=== PATIENT | male | born 1950 | race Caucasian/White ===

== ENCOUNTER 2017-11-20 22:01 | Emergency (ER) | payer MEDICARE, OTHER ==
[2017-11-20 22:32] LABS: % BASOPHILS 0.3 % (0.0-2.0); % EOSINOPHILS 2.5 % (0.0-5.0); % LYMPHOCYTES 20.1 % (20.0-50.0); % NEUTROPHILS 69.1 % (40.0-80.0); EOSINOPHILE ABSOLUTE 0.2 Th/cmm (0.1-0.4); HEMATOCRIT 41.8 % (41.0-60); HEMOGLOBIN 14.1 gm/dL (12-16); LYMPHOCYTE ABSOLUTE 1.8 Th/cmm (1.5-3.0); MEAN CELL VOLUME 87.2 fl (80-99); MEAN CORPUSCULAR HEMOGLOBIN 29.5 pg (27.0-31.0); MEAN CORPUSCULAR HGB CONC 33.9 pg (28.0-36.0); MEAN PLATELET VOLUME 7.8 fl; MONOCYTE ABSOLUTE 0.7 Th/cmm (0.3-1.0); NEUTROPHILE ABSOLUTE 6.4 Th/cmm (1.8-8.0); PLATELET COUNT 151 Th/cmm (150-400); RED BLOOD COUNT 4.79 Mil/cmm (3.80-5.80); RED CELL DISTRIBUTION WIDTH 12.9 % (11.5-20.0); WHITE BLOOD COUNT 9.1 Th/cmm (4.8-10.8)
[2017-11-20 22:49] LABS: ANION GAP 9.7 (7.0-16.0); BUN - UREA NITROGEN 25 mg/dL (7-25); CARBON DIOXIDE 32.5 mEq/L (21.0-31.0); CHLORIDE 100 mEq/L (98-107); CREATININE - SERUM 0.6 mg/dL (0.7-1.3); GFR AFRICAN-AMERICAN > 60.0 ml/min (>90); GFR NON AFRICAN-AMERICAN > 60.0 ml/min; GLUCOSE 92 mg/dL (70-105); POTASSIUM SERUM 4.2 mEq/L (3.5-5.1); SODIUM SERUM 138 mEq/L (136-145)
--- NOTE | 2017-11-20 23:07 | ED Physician Chart ---
ED Chief Complaint/HPI - Patient Information Date Seen:: 11/20/17 Time Seen:: 22:00 Chief Complaint:: cough and congestion History of Present Illness:: Cough and congestion for 2 hours Allergies:: Allergies Allergy/AdvReac Type Severity Reaction Status Date / Time No Known Allergies Allergy Verified 11/20/17 22:02 Vitals:: Vital Signs - 8 hr 11/20/17 22:03 Temp 97.7 F HR 100 RR 20 BP 101/63 O2 Sat % 92 Historian:: Patient, EMS Review:: Nurse's Note Reviewed, Transfer documents Reviewed ED Review of Systems - Review of Systems General/Constitutional: No fever, No chills, No weight loss, No weakness, No diaphoresis, No edema, No loss of appetite Skin: No skin lesions, No rash, No bruising Head: No headache, No light-headedness Eyes: No loss of vision, No pain, No diplopia ENT: No earache, No nasal drainage, No sore throat, No tinnitus Neck: No neck pain, No swelling, No thyromegaly, No stiffness, No mass noted Cardio Vascular: No chest pain, No palpitations, No PND, No orthopnea, No edema Pulmonary: Cough, No wheezing GI: No nausea, No vomiting, No diarrhea, No pain, No melena, No hematochezia, No constipation, No hematemesis G/U: No dysuria, No frequency, No hematuria Musculoskeletal: No bone or joint pain, No back pain, No muscle pain Endocrine: No polyuria, No polydipsia Psychiatric: No prior psych history, No depression, No anxiety, No suicidal ideation Hematopoietic: No bruising, No lymphadenopathy Allergic/Immuno: No urticaria, No angioedema Neurological: No syncope, No focal symptoms, No weakness, No paresthesia, No headache, No seizure, No dizziness, No confusion, No vertigo ED Past Medical History - Past Medical History Past Medical History: Asthma/COPD, CVA/TIA, Other (status post pleural effusion ; aphasia; anemia) Family History: Other ( unavailable) Social History: Care Facility Surgical History: other (laparotomy) Psychiatricy History: None Family Medical History - Family Member Mother History Unknown: Yes Living Status: Unknown Hx Family Cancer: No Hx Family Coronary Artery Disease: No Hx Family Congestive Heart Failure: No Hx Family Hypertension: No Hx Family Stroke: No Hx Family Diabetes: No Hx Family Seizures: No Hx Family Dementia: No Hx Family AIDS: No Hx Family HIV: No Hx Family COPD: No Hx Family Hepatitis: No Hx Family Psychiatric Problems: No Hx Family Tuberculosis: No ED Physical Exam - Physical Examination General/Constitutional: No distress Other Gen/Cons comments:: Patient aphasic Head: Atraumatic Eyes: Lids, conjuctiva normal Skin: Nl inspection, No rash ENMT: External ears, nose nl Neck: No nuchal rigidity Respiratory: Nl effort/Exclusion, Clear to Auscultation, No Wheeze/Rhonchi/Rales Cardio Vascular: RRR GI: No tenderness/rebounding/guarding : No CVA tenderness Extremities: Normal digits & nails Neuro/Psych: No focal deficits ED Labs/Radiology/EKG Results - Lab Results Results: Laboratory Tests 11/20/17 11/20/17 22:24 22:24 WBC 9.1 RBC 4.79 Hgb 14.1 Hct 41.8 MCV 87.2 MCH 29.5 MCHC Differential 33.9 RDW 12.9 Plt Count 151 MPV 7.8 Neutrophils % 69.1 Lymphocytes % 20.1 Monocytes % 8.0 Eosinophils % 2.5 Basophils % 0.3 Sodium 138 Potassium 4.2 Chloride 100 Carbon Dioxide 32.5 H Anion Gap 9.7 BUN 25 Creatinine 0.6 L Est GFR ( Amer) > 60.0 Est GFR (Non-Af Amer) > 60.0 BUN/Creatinine Ratio 41.7 Glucose 92 Calcium 9.0 - Radiology Results Results: Chest x-ray showed elevated right hemidiaphragm, and hernia and calcification of the aortic arch; no infiltrate ED Septic Shock - . Is Septic Shock (SBP<90, OR Lactate>4 mmol\L) present?: No - <6hrs of presentation: Vital Signs: Vital Signs - 8 hr 11/20/17 22:03 Temp 97.7 F HR 100 RR 20 BP 101/63 O2 Sat % 92 ED Reassessment (Disposition) - Reassessment Reassessment:: Dr. Granados at about 0050 and patient to return to his facility Reassessment Condition:: Unchanged - Diagnosis Diagnosis:: Acute viral syndrome - Aftercare/Follow up Instructions Aftercare/Follow-Up Instructions:: Refer to Discharge Instructions - Patient Disposition Discharge/Transfer:: [facility] - [facility] Condition at Disposition:: Stable, Unchanged
--- NOTE | 2017-11-21 08:30 | Diagnostic Imaging Report ---
CHEST X-RAY: AP view INDICATION: Cough COMPARISON: None FINDINGS: There is volume loss of the right lower lobe with right pleural effusion. Borderline prominent heart is noted atherosclerosis. Exam is limited due to patient rotation. Degenerative changes of the spine and shoulders are noted. IMPRESSION: Volume loss of the right lower lobe with right effusion. This may be due to postobstructive pneumonia. Clinical correlation and follow-up is recommended. Short-term follow-up CT of the chest would also provide additional detail and assessment.
== END 2017-11-21 00:50 | disposition home or self-care (01) ==
LOC: ER 22:01
DX: B34.9 Viral infection, unspecified (principal); J44.9 Chronic obstructive pulmonary disease, unspecified; J45.909 Unspecified asthma, uncomplicated; Z86.73 Personal history of transient ischemic attack (TIA), and cerebral infarction without residual deficits
CPT/HCPCS: 36415-UA; 71045-TC; 80048-TC; 85025-TC